=== PATIENT | male | born 1965 | race Caucasian/White ===

== ENCOUNTER → 2016-09-29 | Outpatient (CLI) | payer MEDICAID, OTHER ==
[2016-09-29 14:27] LABS: BASO % 0.6 % (0.0-1.0); EOS # 0.1 K/mm3 (0.0-0.50); EOS % 1.2 % (0.0-3.0); LARGE UNSTAINED CELL # 0.1 K/mm3 (0.0-0.4); LARGE UNSTAINED CELL % 1.5 % (0.0-4.0); LYMPH # 1.1 K/mm3 (1.5-4.5); LYMPH % 14.1 % (24.0-44.0); MEAN CORPUSCULAR HEMOGLOBIN 31.5 pg (27.0-33.0); MEAN CORPUSCULAR HGB CONC 34.9 g/dl (32.0-36.5); MEAN CORPUSCULAR VOLUME 90.2 fl (80.0-96.0); MONO # 0.4 K/mm3 (0.0-0.8); MONO % 4.9 % (0.0-5.0); NEUTROPHILS # 5.7 K/mm3 (1.8-7.7); NEUTROPHILS % 77.6 % (36.0-66.0); RED CELL DISTRIBUTION WIDTH 12.1 % (11.5-14.5); WHITE BLOOD COUNT 7.3 K/mm3 (4.0-10.0)
[2016-09-29 14:47] LABS: ALBUMIN 4.2 GM/DL (3.2-5.2); ALKALINE PHOSPHATASE 77 U/L (45-117); ALT/SGPT 18 U/L (12-78); ANION GAP 9 MEQ/L (8-16); AST/SGOT 10 U/L (15-37); BILIRUBIN,TOTAL 0.5 MG/DL (0.2-1.0); BLOOD UREA NITROGEN 18 MG/DL (7-18); CARBON DIOXIDE LEVEL 28 MEQ/L (21-32); CHLORIDE LEVEL 104 MEQ/L (98-107); CREATININE FOR GFR 1.01 MG/DL (0.70-1.30); GLOMERULAR FILTRATION RATE > 60.0 (>56); GLUCOSE, FASTING 87 MG/DL (70-105); SODIUM LEVEL 141 MEQ/L (136-145); TOTAL PROTEIN 7.2 GM/DL (6.4-8.2)
[2016-09-29 15:03] LABS: PLATELET COUNT, AUTOMATED 54 k/mm3 (150-450)
--- NOTE | 2016-09-29 15:10 | REP ---
CERVICAL SPINE, EIGHT VIEWS: HISTORY: Physical exam. COMPARISON: 01/24/2007 There is no acute fracture or subluxation. The C5-6 through C7-T1 intervertebral discs are decreased in height, consistent with disc degeneration. Osteophytes are present on C5 through C7. There is narrowing of the right C5 and C6 and left C3, C5, and C6 neural foramina, secondary to uncinate process hypertrophy. There is loss of the normal lordotic curve. IMPRESSION: Degenerative change, as described above. Signed by Laron Wong MD 09/29/2016 04:02 P
== END ==
LOC: M LAB 13:36
PROVIDERS: ATTEND Nurse Practitioner Family
DX: Z00.00 Encounter for general adult medical examination without abnormal findings (principal)

== ENCOUNTER → 2016-10-25 | Outpatient (REF) | payer OTHER ==
[2016-10-25 13:36] LABS: REASON FOR REVIEW COMPREHENSIVE REVIEW
[2016-10-27 00:07] LABS: SJOGREN'S ANTI SS-A <0.2 AI (0.0-0.9); SJOGREN'S ANTI SS-B <0.2 AI (0.0-0.9)
== END ==
LOC: M LAB REF 13:18
PROVIDERS: ATTEND Internal Medicine Medical Oncology
DX: D64.9 Anemia, unspecified (principal)

== ENCOUNTER → 2016-10-27 | Outpatient (CLI) | payer OTHER ==
--- NOTE | 2016-10-27 15:40 | REP ---
LIMITED ABDOMEN ULTRASOUND: HISTORY: Splenomegaly. The spleen is normal in size and echogenicity. The spleen measures 8.7 x 3.2 x 7.3 cm. The left kidney is normal in echogenicity. The left kidney measures 5.4 cm in transverse x 5.8 cm in AP x 10.8 cm in cephalocaudal dimensions. There is no hydronephrosis or mass. IMPRESSION: Normal abdominal ultrasound. Signed by Laron Wong MD 10/27/2016 03:45 P
== END ==
LOC: M RAD 07:39
PROVIDERS: ATTEND Internal Medicine Medical Oncology
DX: R16.1 Splenomegaly, not elsewhere classified (principal)

== ENCOUNTER 2016-12-25 13:33 | Outpatient (RCR) | payer OTHER | END 2016-12-26 | LOC: M PT 13:33 | PROVIDERS: ATTEND Neurological Surgery | DX: Z51.89 Encounter for other specified aftercare (principal); M54.2 Cervicalgia ==

== ENCOUNTER → 2017-01-25 | Outpatient (RCR) | payer OTHER | LOC: M PT 12-27 12:54 | PROVIDERS: ATTEND Neurological Surgery | DX: M48.02 Spinal stenosis, cervical region (principal) ==

== ENCOUNTER → 2017-01-30 | Outpatient (CLI) | payer OTHER ==
[~2017-01-30] MED LIST: GASTROGRAFIN SOLUTION 30ML (Q9963) As Ordered ONE; ISOVUE-370 76% 100ML VIAL (Q9967) As Ordered ONE
--- NOTE | 2017-01-31 09:29 | REP ---
CONTRAST ENHANCED CT OF THE PELVIS: CLINICAL: Postop left groin pain, evaluate for hematoma/seroma/mass. TECHNIQUE: Axial contrast enhanced images of the pelvis from approximately L4 through the pubic symphysis with coronal and sagittal reformations using oral (per protocol) and 100 mL Isovue 370 intravenous contrast material with coronal and sagittal reformations. COMPARISON: None. FINDINGS: The visualized enteric system demonstrates diverticula of the sigmoid colon without acute diverticulitis as well as a normal terminal ileum and appendix in the right lower quadrant. No bowel obstruction. No free air. No free fluid. No significant adenopathy. Vasculature is grossly unremarkable. Musculoskeletal structures are intact. No obvious significant adenopathy. Subtle postoperative changes in the left groin/inguinal region are appreciated without seroma or hematoma. IMPRESSION: Essentially normal contrast enhanced pelvic CT. Minimal postoperative changes in the left groin without hematoma/seroma. Signed by Julio Linn MD 02/02/2017 08:48 A
== END ==
LOC: M RAD 12:35
PROVIDERS: ATTEND Surgery
DX: K40.90 Unilateral inguinal hernia, without obstruction or gangrene, not specified as recurrent (principal)
CPT/HCPCS: 72193; Q9963; Q9967

== ENCOUNTER 2017-02-01 08:37 | Outpatient (RCR) | payer OTHER | END 2017-02-25 | LOC: M PT 08:37 | DX: Z51.89 Encounter for other specified aftercare (principal); M54.2 Cervicalgia | CPT/HCPCS: 97110 ==

== ENCOUNTER 2017-02-27 08:22 | Outpatient (RCR) | payer OTHER | END 2017-03-28 | LOC: M PT 08:22 | DX: Z51.89 Encounter for other specified aftercare (principal); M54.2 Cervicalgia ==

== ENCOUNTER 2017-04-28 18:48 | Emergency (ER) | payer OTHER ==
[2017-04-28] MEDS: ACETAMINOPHEN 325 MG TAB PO (19:45)
[2017-04-28] MEDS: IBUPROFEN 600 MG TAB PO (19:45)
[2017-04-28 20:25] LABS: INFLUENZA A AMPLIFICATION NEGATIVE (NEGATIVE); INFLUENZA B AMPLIFICATION POSITIVE (NEGATIVE)
== END 2017-04-28 20:53 | disposition home or self-care (01) ==
LOC: M ED 18:48
DX: J10.1 Influenza due to other identified influenza virus with other respiratory manifestations (principal); J02.9 Acute pharyngitis, unspecified; K21.9 Gastro-esophageal reflux disease without esophagitis; F17.200 Nicotine dependence, unspecified, uncomplicated; Z79.899 Other long term (current) drug therapy
CPT/HCPCS: 87502

== ENCOUNTER → 2017-05-08 | Outpatient (CLI) | payer OTHER ==
[2017-05-08 08:55] LABS: BASO # 0.1 10^3/uL (0.0-0.2); BASO % 0.9 % (0.0-1.0); EOS # 1.7 10^3/uL (0.0-0.50); HEMATOCRIT 46.4 % (42.0-52.0); HEMOGLOBIN 15.5 g/dl (14.0-18.0); IMMATURE GRANULOCYTE % 0.4 % (0-3.0); LYMPH # 1.5 10^3/uL (1.5-4.5); LYMPH % 16.2 % (24.0-44.0); MEAN CORPUSCULAR HEMOGLOBIN 29.8 pg (27.0-33.0); MEAN CORPUSCULAR HGB CONC 33.4 g/dl (32.0-36.5); MEAN CORPUSCULAR VOLUME 89.1 fl (80.0-96.0); MONO # 0.7 10^3/uL (0.0-0.8); MONO % 7.8 % (0.0-5.0); NEUTROPHILS % 55.7 % (36.0-66.0); PLATELET COUNT, AUTOMATED 219 10^3/uL (150-450); RED BLOOD COUNT 5.21 10^6/uL (4.30-6.10); RED CELL DISTRIBUTION WIDTH 12.5 % (11.5-14.5); WHITE BLOOD COUNT 8.9 10^3/uL (4.0-10.0)
[2017-05-08 09:14] LABS: ESTIMATED AVERAGE GLUCOSE 123 MG/DL (60-110); HEMOGLOBIN A1c 5.9 %
[2017-05-08 09:31] LABS: ALBUMIN 3.8 GM/DL (3.2-5.2); ALBUMIN/GLOBULIN RATIO 1.15 (1.00-1.93); ALKALINE PHOSPHATASE 93 U/L (45-117); ALT/SGPT 19 U/L (12-78); ANION GAP 4 MEQ/L (8-16); AST/SGOT 13 U/L (7-37); BILIRUBIN,TOTAL 0.3 MG/DL (0.2-1.0); BLOOD UREA NITROGEN 19 MG/DL (7-18); CALCIUM LEVEL 8.2 MG/DL (8.5-10.1); CARBON DIOXIDE LEVEL 30 MEQ/L (21-32); CHLORIDE LEVEL 110 MEQ/L (98-107); CHOLESTEROL LEVEL 214 MG/DL (<200); CHOLESTEROL RISK RATIO 5.944 (<5); CREATININE FOR GFR 0.86 MG/DL (0.70-1.30); FREE T4 0.94 NG/DL (0.76-1.46); GLOMERULAR FILTRATION RATE > 60.0 (>56); GLUCOSE, FASTING 96 MG/DL (70-100); HDL CHOLESTEROL 36 MG/DL (>40); NON-HDL-C 178 MG/DL; POTASSIUM SERUM 4.8 MEQ/L (3.5-5.1); SODIUM LEVEL 144 MEQ/L (136-145); TOTAL PROTEIN 7.1 GM/DL (6.4-8.2); TRIGLYCERIDES LEVEL 140 MG/DL (<150)
== END ==
LOC: M LAB 08:06
DX: D69.3 Immune thrombocytopenic purpura (principal); E55.9 Vitamin D deficiency, unspecified; Z79.899 Other long term (current) drug therapy
CPT/HCPCS: 84443

== ENCOUNTER 2017-10-23 09:03 | Day surgery (SDC) | payer OTHER ==
[2017-10-23] MEDS: LR 1,000 ML IV (09:36)
[2017-10-23] MEDS: ceFAZolin SOD 1 GM in D5W MINI-BAG PLUS 50 ML IV (11:40)
[2017-10-23] MEDS ORDERED: MIDAZOLAM INJ 2 MG/2 ML VIAL (J2250) As Ordered (11:51)
[2017-10-23] MEDS ORDERED: ONDANSETRON 4MG/2ML VIAL (J2405) As Ordered (11:51)
[2017-10-23] MEDS ORDERED: dexameTHASONE 4 MG/ML 1ML VIAL (J1100) As Ordered (11:51)
[2017-10-23] MEDS ORDERED: LIDOCAINE 2% INJ 100 MG/5 ML SDV (FOR ANES.) As Ordered (11:51)
[2017-10-23] MEDS ORDERED: PROPOFOL 200 MG/20 ML VIAL As Ordered (11:51)
[2017-10-23] MEDS ORDERED: fentaNYL 250 MCG/5 ML INJECTION (J3010) As Ordered (11:51)
[2017-10-23] MEDS ORDERED: KETOROLAC 60 MG/2 ML VIAL (J1885) As Ordered (11:51)
[2017-10-23] MEDS: BUPIVACAINE/EPIN 0.25% 30 ML VIAL As Ordered (12:45)
[2017-10-23] MEDS ORDERED: MORPHINE 4 MG/ML 1ML VIAL/SYRINGE (J2270) IV (13:15)
[2017-10-23] MEDS ORDERED: fentaNYL 100 MCG/2 ML INJECTION (J3010) IV (13:15)
[2017-10-23] MEDS ORDERED: ONDANSETRON 4MG/2ML VIAL (J2405) IV ×2 (13:15)
[2017-10-23] MEDS ORDERED: LR 1,000 ML IV ×2 (13:15)
[2017-10-23] MEDS ORDERED: PERCOCET 5MG/325MG TAB PO (13:15)
[2017-10-23] MEDS ORDERED: NORCO, ANEXSIA 5/325MG TABLET (HYDROcodone/ACETAMINOPHEN) PO (13:15)
[2017-10-23] MEDS ORDERED: MORPHINE 10 MG/ML 1ML VIAL (J2270) IV (13:15)
== END 2017-10-23 14:45 | disposition home or self-care (01) ==
LOC: M SDC 09:03
DX: K40.91 Unilateral inguinal hernia, without obstruction or gangrene, recurrent (principal); K21.9 Gastro-esophageal reflux disease without esophagitis; M19.022 Primary osteoarthritis, left elbow; R06.83 Snoring; G47.9 Sleep disorder, unspecified; Z72.0 Tobacco use; Z79.899 Other long term (current) drug therapy
CPT/HCPCS: 49651

== ENCOUNTER → 2018-01-21 | Outpatient (CLI) | payer OTHER | LOC: M OUTALCOH 08:22 | DX: F10.10 Alcohol abuse, uncomplicated (principal) ==

== ENCOUNTER 2018-02-03 11:21 | Emergency (ER) | payer OTHER ==
[2018-02-03] MEDS: LIDOCAINE 1% MDV 20ML VIAL IM (12:06)
[2018-02-03] MEDS: NORCO, ANEXSIA 5/325MG TABLET (HYDROcodone/ACETAMINOPHEN) PO (12:26)
== END 2018-02-03 12:54 | disposition home or self-care (01) ==
LOC: M ED 11:21
DX: L02.214 Cutaneous abscess of groin (principal); K21.9 Gastro-esophageal reflux disease without esophagitis; Z79.899 Other long term (current) drug therapy; F17.210 Nicotine dependence, cigarettes, uncomplicated
CPT/HCPCS: 87186

== ENCOUNTER → 2018-02-25 | Outpatient (RCR) | payer OTHER ==
[~2018-02-25] MED LIST changes: +BACT800T5 PO; -GASTROGRAFIN SOLUTION 30ML (Q9963) As Ordered ONE; +IBUP80TA PO; -ISOVUE-370 76% 100ML VIAL (Q9967) As Ordered ONE; +NORCOTAB PO; +OMEP20CA3 PO; +VITA100066 PO; +ZANTTAB PO
== END ==
LOC: M OUTALCOH 01-29 09:04 → EEVIPCON 02-05 09:00 → M OUTALCOH 02-07 14:00
PROVIDERS: ATTEND Psychiatry & Neurology Psychiatry
DX: F10.10 Alcohol abuse, uncomplicated (principal)

== ENCOUNTER 2018-03-27 15:52 | Outpatient (RCR) | payer OTHER, SELFPAY | END 2018-03-28 | LOC: M OUTALCOH 15:52 | PROVIDERS: ATTEND Psychiatry & Neurology Psychiatry | DX: F10.10 Alcohol abuse, uncomplicated (principal) ==

== ENCOUNTER 2018-04-17 16:00 | Outpatient (RCR) | payer OTHER | END 2018-04-25 | LOC: M OUTALCOH 16:00 | PROVIDERS: ATTEND Psychiatry & Neurology Psychiatry | DX: F10.10 Alcohol abuse, uncomplicated (principal) ==

== ENCOUNTER → 2021-01-11 | Outpatient (CLI) | payer OTHER ==
[~2021-01-11] MED LIST changes: +HYDR-3715 PO; -NORCOTAB PO; +OMEP1CAP73 PO; -OMEP20CA3 PO; +ZANT150T40 PO; -ZANTTAB PO
--- NOTE | 2021-01-11 11:40 | REP ---
INDICATION: OTHER INFECTIVE SYNOVITIS COMPARISON: None. TECHNIQUE: AP and lateral right elbow FINDINGS: Evidence for prior open reduction and fixation with orthopedic hardware stabilizing proximal ulna. No acute fracture or dislocation identified. Anterior and posterior fat pads are in normal position. No subcutaneous emphysema. IMPRESSION: Satisfactory open reduction and fixation for elbow/proximal ulnar fracture. No obvious acute process appreciated. <Electronically signed by Julio Linn > 01/11/21 [id number]
== END ==
LOC: M WUC 11:01
PROVIDERS: ATTEND Surgery
DX: M65.122 Other infective (teno)synovitis, left elbow (principal); S51.032S Puncture wound without foreign body of left elbow, sequela; W18.30XA Fall on same level, unspecified, initial encounter; Y92.009 Unspecified place in unspecified non-institutional (private) residence as the place of occurrence of the external cause

== ENCOUNTER 2021-06-09 11:39 | Emergency (ER) | payer OTHER ==
[~2021-06-09] VITALS: Ht 162.6 cm; Wt 67.4 kg
[2021-06-09] MEDS ORDERED: NS 1,000 ML IV ONE (13:25)
[2021-06-09] MEDS ORDERED: ACETAMINOPHEN 325 MG TAB PO ONE (13:30)
[2021-06-09 14:02] LABS: BASO % 0.5 % (0.0-1.0); HEMATOCRIT 44.8 % (42.0-52.0); LYMPH # 1.4 10^3/uL (1.5-5.0); LYMPH % 16.6 % (24.0-44.0); MEAN CORPUSCULAR HEMOGLOBIN 30.1 pg (27.0-33.0); MEAN CORPUSCULAR HGB CONC 33.5 g/dl (32.0-36.5); MEAN CORPUSCULAR VOLUME 89.8 fl (80.0-96.0); MONO # 0.5 10^3/uL (0.0-0.8); MONO % 5.7 % (2.0-8.0); NEUTROPHILS # 6.5 10^3/uL (1.5-8.5); NEUTROPHILS % 76.8 % (36.0-66.0); RED BLOOD COUNT 4.99 10^6/uL (4.30-6.10); WHITE BLOOD COUNT 8.5 10^3/uL (4.0-10.0)
[2021-06-09] MEDS ORDERED: ISOVUE-370 76% 100ML VIAL As Ordered ONE (14:02)
[2021-06-09 14:46] LABS: ALBUMIN 4.2 GM/DL (3.2-5.2); ALT/SGPT 17 U/L (12-78); BILIRUBIN,DIRECT < 0.1 MG/DL (0.0-0.2); BILIRUBIN,TOTAL 0.4 MG/DL (0.2-1.0); C REACTIVE PROTEIN QUANTITATIV < 0.30 MG/DL (0.00-0.30); LIPASE 82 U/L (73-393); TOTAL PROTEIN 7.4 GM/DL (6.4-8.2)
[2021-06-09 14:55] LABS: ERYTHROCYTE SEDIMENTATION RATE 4 mm/hr (0-20)
[2021-06-09 14:58] LABS: PLATELET COUNT, AUTOMATED 50 10^3/uL (150-450)
[2021-06-09 15:49] LABS: RSV AMPLIFICATION NEGATIVE (NEGATIVE)
[2021-06-09 16:17] VITALS: BP 142/88
== END 2021-06-09 16:26 | disposition home or self-care (01) ==
LOC: M ED 11:39
DX: D69.6 Thrombocytopenia, unspecified (principal); T81.30XA Disruption of wound, unspecified, initial encounter; K21.9 Gastro-esophageal reflux disease without esophagitis; Z87.891 Personal history of nicotine dependence; Z96.7 Presence of other bone and tendon implants
CPT/HCPCS: 73080; 73090; 73201; 80047; 80076; 83605; 83690; 85025; 85049; 85055; 85652; 86140; 87040; 87070; 87077; 87186; 87205; 87631; 96360; 99284; Q9967

== ENCOUNTER 2021-06-13 13:01 | Day surgery (SDC) | payer OTHER ==
[~2021-06-13] VITALS: Ht 162.6 cm; Wt 66.7 kg
[~2021-06-13 13:01] MED LIST changes: +ceFAZolin SOD 2 GM in IV 1 EA IV ONE; +oxyCODONE 5MG TAB PO ONE
[2021-06-13 13:45] LABS: HEMATOCRIT 46.6 % (42.0-52.0); HEMOGLOBIN 15.5 g/dl (13.5-17.5); MEAN CORPUSCULAR HGB CONC 33.3 g/dl (32.0-36.5); MEAN CORPUSCULAR VOLUME 90.1 fl (80.0-96.0); RED BLOOD COUNT 5.17 10^6/uL (4.30-6.10); WHITE BLOOD COUNT 8.2 10^3/uL (4.0-10.0)
[2021-06-13 13:46] LABS: PLATELET COUNT, AUTOMATED 53 10^3/uL (150-450)
[2021-06-13 13:54] LABS: INR 0.92; PROTHROMBIN TIME 12.8 SECONDS (12.7-14.5)
[2021-06-13 14:16] LABS: ALBUMIN 4.3 GM/DL (3.2-5.2); ALT/SGPT 19 U/L (12-78); BILIRUBIN,TOTAL 0.5 MG/DL (0.2-1.0); BLOOD UREA NITROGEN 16 MG/DL (7-18); CALCIUM LEVEL 9.3 MG/DL (8.5-10.1); CARBON DIOXIDE LEVEL 33 MEQ/L (21-32); CHLORIDE LEVEL 107 MEQ/L (98-107); CREATININE FOR GFR 0.78 MG/DL (0.70-1.30); GLOMERULAR FILTRATION RATE > 60.0 (>56); GLUCOSE, FASTING 87 MG/DL (70-100); POTASSIUM SERUM 4.1 MEQ/L (3.5-5.1); SODIUM LEVEL 143 MEQ/L (136-145); TOTAL PROTEIN 7.4 GM/DL (6.4-8.2)
[2021-06-13] MEDS ORDERED: propofoL 200 MG/20 ML VIAL As Ordered ONE (14:56)
[2021-06-13] MEDS ORDERED: LIDOCAINE 2% 100MG/5ML SDV (FOR ANES.) As Ordered ONE (14:56)
[2021-06-13] MEDS ORDERED: ONDANSETRON 4MG/2ML VIAL As Ordered ONE (14:57)
[2021-06-13] MEDS ORDERED: KETOROLAC 60MG 2ML VIAL As Ordered ONE (14:58)
[2021-06-13] MEDS ORDERED: dexameTHASONE 4 MG/ML 1ML VIAL (J1100 PER 1MG) As Ordered ONE (14:58)
[2021-06-13] MEDS ORDERED: LIDOCAINE 1% SDV 30ML VIAL As Ordered ONE (15:58)
[2021-06-13] MEDS ORDERED: ROCURONIUM BROMIDE 50 MG/5 ML VIAL As Ordered ONE (16:09)
[2021-06-13] MEDS ORDERED: fentaNYL 100 MCG/2 ML INJECTION As Ordered ONE (16:10)
[2021-06-13] MEDS ORDERED: MIDAZOLAM INJ 2MG/2ML VIAL (J2250 PER 1MG) As Ordered ONE (16:10)
[2021-06-13] MEDS ORDERED: BUPIVACAINE LIPOSOME/PF 1.3% 20ML VIAL (13.3MG/ML)(EXPAREL) As Ordered ONE (16:55)
[2021-06-13] MEDS ORDERED: ACETAMINOPHEN 1000MG 100ML IV BTL (OFIRMEV) (J0131 PER 10MG) As Ordered ONE (17:00)
[2021-06-13] MEDS ORDERED: BUPIVACAINE HCL 0.25% 10ML VIAL As Ordered ONE (17:19)
[2021-06-13] MEDS ORDERED: KETOROLAC 30 MG/ML 1ML VIAL IV PRN (17:40)
[2021-06-13] MEDS ORDERED: AUGM500T34 PO (17:49)
[2021-06-13] MEDS ORDERED: TRAM37.53 PO (17:50)
[2021-06-13] MEDS ORDERED: fentaNYL 100 MCG/2 ML INJECTION IV PRN (18:05)
[2021-06-13] MEDS ORDERED: LR 1,000 ML IV SCH ×2 (18:05→18:40)
[2021-06-13] MEDS ORDERED: ONDANSETRON 4MG/2ML VIAL IV PRN (18:05)
[2021-06-13] MEDS ORDERED: PERCOCET 5MG/325MG TAB PO PRN (18:05)
[2021-06-13 18:51] VITALS: BP 168/81
== END 2021-06-13 19:09 | disposition home or self-care (01) ==
LOC: M SDC 13:01
PROVIDERS: ATTEND Orthopaedic Surgery
DX: T81.31XA Disruption of external operation (surgical) wound, not elsewhere classified, initial encounter (principal); Z47.2 Encounter for removal of internal fixation device; F17.218 Nicotine dependence, cigarettes, with other nicotine-induced disorders; Y79.3 Surgical instruments, materials and orthopedic devices (including sutures) associated with adverse incidents; Y83.8 Other surgical procedures as the cause of abnormal reaction of the patient, or of later complication, without mention of misadventure at the time of the procedure
CPT/HCPCS: 20680; 36415; 71045; 73070; 80053; 85027; 85049; 85055; 85610; 93005; C9290; J0131; J0690; J1100; J1885; J2250; J2405; J3010

== ENCOUNTER 2023-06-27 10:33 | Emergency (ER) | payer MEDICAID, OTHER ==
[~2023-06-27] VITALS: Ht 162.6 cm; Wt 67.3 kg
[~2023-06-27 10:33] MED LIST changes: +AUGM500T34 PO; +TRAM37.53 PO; -ceFAZolin SOD 2 GM in IV 1 EA IV ONE; -oxyCODONE 5MG TAB PO ONE
[2023-06-27 12:03] LABS: BASO # 0.1 10^3/uL (0.0-0.2); BASO % 0.8 % (0.0-1.0); EOS % 0.5 % (0.0-3.0); HEMATOCRIT 46.2 % (42.0-52.0); HEMOGLOBIN 15.7 g/dl (13.5-17.5); LYMPH # 1.2 10^3/uL (1.5-5.0); LYMPH % 18.1 % (24.0-44.0); MEAN CORPUSCULAR HEMOGLOBIN 30.8 pg (27.0-33.0); MEAN CORPUSCULAR VOLUME 90.8 fl (80.0-96.0); MONO # 0.5 10^3/uL (0.0-0.8); MONO % 7.2 % (2.0-8.0); NEUTROPHILS # 4.8 10^3/uL (1.5-8.5); NEUTROPHILS % 72.9 % (36.0-66.0); PLATELET COUNT, AUTOMATED 103 10^3/uL (150-450); RED BLOOD COUNT 5.09 10^6/uL (4.30-6.10); WHITE BLOOD COUNT 6.6 10^3/uL (4.0-10.0)
[2023-06-27 12:11] LABS: LIPASE 38 U/L (12-53)
[2023-06-27 12:13] LABS: ALBUMIN 3.9 G/DL (3.2-5.2); ALKALINE PHOSPHATASE 81 U/L (46-116); ALT/SGPT 13 U/L (7.0-40); AST/SGOT 12 U/L (<34); BILIRUBIN,DIRECT 0.1 MG/DL (<0.4); BILIRUBIN,TOTAL 0.4 MG/DL (0.3-1.2); BLOOD UREA NITROGEN 25 MG/DL (9-23); CALCIUM LEVEL 8.6 MG/DL (8.5-10.1); CARBON DIOXIDE LEVEL 29 MMOL/L (20-31); CHLORIDE LEVEL 107 MMOL/L (98-107); GLOMERULAR FILTRATION RATE > 60.0 (>56); GLUCOSE, FASTING 102 MG/DL (60-100); POTASSIUM SERUM 4.3 MMOL/L (3.5-5.1); SODIUM LEVEL 140 MMOL/L (136-145); TOTAL PROTEIN 6.7 G/DL (5.7-8.2)
[2023-06-27] MEDS: KETOROLAC 30 MG/ML 1ML VIAL IV ONE (13:54)
[2023-06-27] MEDS ORDERED: ISOVUE-370 76% 100ML VIAL As Ordered ONE (13:54)
[2023-06-27 14:03] LABS: C REACTIVE PROTEIN QUANTITATIV < 0.40 MG/DL (<1.0)
[2023-06-27] MEDS ORDERED: PRIL20TA2 PO (14:24)
[2023-06-27] MEDS ORDERED: HOME MED LIST COMPLETE! XX SCH (14:25)
[2023-06-27 14:29] VITALS: TEMP 97
[2023-06-27 15:05] VITALS: BP 174/72; O2SAT 97
== END 2023-06-27 15:10 | disposition home or self-care (01) ==
LOC: M ED 10:33
DX: R10.9 Unspecified abdominal pain (principal); K21.9 Gastro-esophageal reflux disease without esophagitis; F17.200 Nicotine dependence, unspecified, uncomplicated; Z79.899 Other long term (current) drug therapy
CPT/HCPCS: 74177; 80048; 80076; 81001; 83690; 85025; 86140; 96374; 99284; J1885; Q9967

== ENCOUNTER → 2023-07-03 | Outpatient (CLI) | payer MEDICAID ==
[~2023-07-03] MED LIST changes: +PRIL20TA2 PO
== END ==
LOC: M OUTALCOH 13:26
PROVIDERS: ATTEND Psychiatry & Neurology Psychiatry
DX: F10.20 Alcohol dependence, uncomplicated (principal); F17.200 Nicotine dependence, unspecified, uncomplicated

== ENCOUNTER → 2023-07-25 | Outpatient (CLI) | payer MEDICAID ==
[2023-07-25 15:20] LABS: FREE T4 1.09 NG/DL (0.89-1.76)
[2023-07-25 15:21] LABS: HEPATITIS B SURFACE ANTIBODY POSITIVE (POSITIVE); THYROID STIMULATING HORMONE 1.084 uIU/ML (0.55-4.78)
[2023-07-25 15:22] LABS: CHOLESTEROL LEVEL 269 MG/DL (<200); CHOLESTEROL RISK RATIO 3.79 (<5); HDL CHOLESTEROL 70.8 MG/DL (>40); LDL CHOLESTEROL 179.8 MG/DL (<100); NON-HDL-C 198.2 MG/DL; TOTAL 25(OH) VITAMIN D 23.8 NG/ML (20.0-100.0); TRIGLYCERIDES LEVEL 92 MG/DL (<150)
[2023-07-25 15:27] LABS: HEMOGLOBIN A1c 4.9 % (4.0-6.0)
[2023-07-25 15:33] LABS: HEPATITIS B SURFACE ANTIGEN NEGATIVE (NEGATIVE)
[2023-07-25 15:45] LABS: HIV 1&2 SCREEN NEGATIVE (NEGATIVE)
[2023-07-25 15:53] LABS: HEPATITIS C VIRUS ABY INDEX < 0.02 INDEX (<0.8)
== END ==
LOC: M PLAIMG 10:37
PROVIDERS: ATTEND Student in an Organized Health Care Education/Training Program
DX: R10.32 Left lower quadrant pain (principal); Z13.220 Encounter for screening for lipoid disorders; Z13.29 Encounter for screening for other suspected endocrine disorder; Z13.21 Encounter for screening for nutritional disorder; Z11.59 Encounter for screening for other viral diseases; Z11.4 Encounter for screening for human immunodeficiency virus [HIV]; Z13.1 Encounter for screening for diabetes mellitus

== ENCOUNTER → 2023-07-27 | Outpatient (RCR) | payer MEDICAID | LOC: M OUTALCOH 07-10 15:49 | PROVIDERS: ATTEND Psychiatry & Neurology Psychiatry | DX: F10.20 Alcohol dependence, uncomplicated (principal); F17.200 Nicotine dependence, unspecified, uncomplicated ==

== ENCOUNTER 2023-08-24 15:00 | Outpatient (RCR) | payer MEDICAID | END 2023-08-26 | LOC: M OUTALCOH 15:00 | PROVIDERS: ATTEND Psychiatry & Neurology Psychiatry | DX: F10.20 Alcohol dependence, uncomplicated (principal); F17.200 Nicotine dependence, unspecified, uncomplicated ==

== ENCOUNTER 2023-09-08 14:40 | Emergency (ER) | payer MEDICAID ==
[~2023-09-08] VITALS: Ht 162.6 cm; Wt 65.4 kg
[~2023-09-08 14:40] MED LIST changes: +TRAM-443 PO; -TRAM37.53 PO
[2023-09-08 14:41] VITALS: BP 139/75; TEMP 97.9; O2SAT 97
[2023-09-08 16:29] LABS: BASO # 0.1 10^3/uL (0.0-0.2); BASO % 0.6 % (0.0-1.0); EOS % 0.5 % (0.0-3.0); HEMATOCRIT 49.1 % (42.0-52.0); HEMOGLOBIN 16.4 g/dl (13.5-17.5); LYMPH # 1.4 10^3/uL (1.5-5.0); LYMPH % 15.3 % (24.0-44.0); MEAN CORPUSCULAR HEMOGLOBIN 31.7 pg (27.0-33.0); MEAN CORPUSCULAR HGB CONC 33.4 g/dl (32.0-36.5); MEAN CORPUSCULAR VOLUME 94.8 fl (80.0-96.0); MONO # 0.5 10^3/uL (0.0-0.8); NEUTROPHILS # 6.8 10^3/uL (1.5-8.5); NEUTROPHILS % 77.3 % (36.0-66.0); RED BLOOD COUNT 5.18 10^6/uL (4.30-6.10); WHITE BLOOD COUNT 8.8 10^3/uL (4.0-10.0)
[2023-09-08 16:30] LABS: PLATELET COUNT, AUTOMATED 89 10^3/uL (150-450)
[2023-09-08 16:59] LABS: BILIRUBIN,DIRECT 0.1 MG/DL (<0.4); BILIRUBIN,TOTAL 0.5 MG/DL (0.3-1.2); TOTAL PROTEIN 6.9 G/DL (5.7-8.2)
[2023-09-08] MEDS: ACETAMINOPHEN 500 MG TAB PO ONE (18:02)
== END 2023-09-08 19:06 | disposition home or self-care (01) ==
LOC: M ED 14:40
DX: R10.812 Left upper quadrant abdominal tenderness (principal); M16.12 Unilateral primary osteoarthritis, left hip; F17.200 Nicotine dependence, unspecified, uncomplicated; K21.9 Gastro-esophageal reflux disease without esophagitis; F10.10 Alcohol abuse, uncomplicated; Z86.718 Personal history of other venous thrombosis and embolism; Z79.899 Other long term (current) drug therapy

== ENCOUNTER 2023-09-24 13:00 | Outpatient (RCR) | payer MEDICAID | END 2023-09-26 | LOC: M OUTALCOH 13:00 | PROVIDERS: ATTEND Psychiatry & Neurology Psychiatry | DX: F10.20 Alcohol dependence, uncomplicated (principal); F17.200 Nicotine dependence, unspecified, uncomplicated ==

== ENCOUNTER 2023-10-24 12:00 | Outpatient (RCR) | payer MEDICAID ==
[~2023-10-24 12:00] MED LIST changes: -TRAM-443 PO; +TRAM1TAB42 PO
== END 2023-10-27 ==
LOC: M OUTALCOH 12:00
PROVIDERS: ATTEND Psychiatry & Neurology Psychiatry
DX: F10.20 Alcohol dependence, uncomplicated (principal); F17.200 Nicotine dependence, unspecified, uncomplicated

== ENCOUNTER → 2023-11-26 | Outpatient (RCR) | payer MEDICAID | LOC: M OUTALCOH 10-30 16:00 | PROVIDERS: ATTEND Psychiatry & Neurology Psychiatry | DX: F10.20 Alcohol dependence, uncomplicated (principal); F17.200 Nicotine dependence, unspecified, uncomplicated ==

== ENCOUNTER 2023-12-24 14:55 | Outpatient (RCR) | payer MEDICAID | END 2023-12-27 | LOC: M OUTALCOH 14:55 | PROVIDERS: ATTEND Psychiatry & Neurology Psychiatry | DX: F10.20 Alcohol dependence, uncomplicated (principal); F17.200 Nicotine dependence, unspecified, uncomplicated ==

== ENCOUNTER 2024-01-21 14:46 | Outpatient (RCR) | payer MEDICAID | END 2024-01-26 | LOC: M OUTALCOH 14:46 | PROVIDERS: ATTEND Psychiatry & Neurology Psychiatry | DX: F10.20 Alcohol dependence, uncomplicated (principal); F17.200 Nicotine dependence, unspecified, uncomplicated ==

== ENCOUNTER 2024-02-25 15:00 | Outpatient (RCR) | payer MEDICAID | END 2024-02-26 | LOC: M OUTALCOH 15:00 | PROVIDERS: ATTEND Psychiatry & Neurology Psychiatry | DX: F10.20 Alcohol dependence, uncomplicated (principal); F17.200 Nicotine dependence, unspecified, uncomplicated ==

== ENCOUNTER → 2024-03-05 | Outpatient (CLI) | payer MEDICAID, OTHER ==
[2024-03-05 14:30] LABS: BASO % 0.7 % (0.0-1.0); EOS % 0.3 % (0.0-3.0); HEMATOCRIT 51.3 % (42.0-52.0); HEMOGLOBIN 17.3 g/dl (13.5-17.5); LYMPH # 0.7 10^3/uL (1.5-5.0); LYMPH % 11.8 % (24.0-44.0); MEAN CORPUSCULAR HEMOGLOBIN 31.9 pg (27.0-33.0); MEAN CORPUSCULAR HGB CONC 33.7 g/dl (32.0-36.5); MEAN CORPUSCULAR VOLUME 94.6 fl (80.0-96.0); MONO # 0.4 10^3/uL (0.0-0.8); MONO % 7.5 % (2.0-8.0); NEUTROPHILS # 4.7 10^3/uL (1.5-8.5); NEUTROPHILS % 79.5 % (36.0-66.0); RED BLOOD COUNT 5.42 10^6/uL (4.30-6.10); WHITE BLOOD COUNT 5.9 10^3/uL (4.0-10.0)
[2024-03-05 14:39] LABS: PLATELET COUNT, AUTOMATED 87 10^3/uL (150-450)
[2024-03-05 14:47] LABS: PSA SCREENING 2.25 NG/ML (< 4.00)
[2024-03-05 14:51] LABS: ALBUMIN 4.1 G/DL (3.2-5.2); ALKALINE PHOSPHATASE 77 U/L (40-129); ALT/SGPT 36 U/L (7.0-40); AST/SGOT 26 U/L (<34); BILIRUBIN,TOTAL 0.6 MG/DL (0.3-1.2); BLOOD UREA NITROGEN 20 MG/DL (9-23); CALCIUM LEVEL 9.2 MG/DL (8.5-10.1); CARBON DIOXIDE LEVEL 31 MMOL/L (20-31); CHLORIDE LEVEL 108 MMOL/L (98-107); CHOLESTEROL LEVEL 243 MG/DL (<200); CHOLESTEROL RISK RATIO 2.91 (<5); CREATININE FOR GFR 0.93 MG/DL (0.70-1.30); FREE T4 1.16 NG/DL (0.89-1.76); GLOMERULAR FILTRATION RATE > 60.0 (>56); GLUCOSE, FASTING 104 MG/DL (60-100); HDL CHOLESTEROL 83.4 MG/DL (>40); LDL CHOLESTEROL 143.6 MG/DL (<100); NON-HDL-C 159.6 MG/DL; POTASSIUM SERUM 4.5 MMOL/L (3.5-5.1); SODIUM LEVEL 144 MMOL/L (136-145); TOTAL PROTEIN 7.3 G/DL (5.7-8.2); TRIGLYCERIDES LEVEL 80 MG/DL (<150)
[2024-03-05 14:52] LABS: THYROID STIMULATING HORMONE 1.258 uIU/ML (0.55-4.78); VITAMIN B12 LEVEL 416 PG/ML (211-911)
== END ==
LOC: M PLALAB 09:58
PROVIDERS: ATTEND Nurse Practitioner Family
DX: N52.9 Male erectile dysfunction, unspecified (principal); E78.2 Mixed hyperlipidemia; Z12.5 Encounter for screening for malignant neoplasm of prostate; F10.90 Alcohol use, unspecified, uncomplicated

== ENCOUNTER 2024-03-24 14:48 | Outpatient (RCR) | payer MEDICAID, OTHER | END 2024-03-28 | LOC: M OUTALCOH 14:48 | PROVIDERS: ATTEND Psychiatry & Neurology Psychiatry | DX: F10.20 Alcohol dependence, uncomplicated (principal); F17.200 Nicotine dependence, unspecified, uncomplicated ==

== ENCOUNTER → 2024-04-10 | Outpatient (CLI) | payer OTHER | LOC: M RAD 11:39 | PROVIDERS: ATTEND Nurse Practitioner Family | DX: N42.89 Other specified disorders of prostate (principal); R10.32 Left lower quadrant pain; K44.9 Diaphragmatic hernia without obstruction or gangrene ==

== ENCOUNTER 2024-04-21 13:43 | Outpatient (RCR) | payer OTHER, MEDICAID | END 2024-04-25 | LOC: M OUTALCOH 13:43 | PROVIDERS: ATTEND Psychiatry & Neurology Psychiatry | DX: F10.20 Alcohol dependence, uncomplicated (principal); F17.200 Nicotine dependence, unspecified, uncomplicated ==

== ENCOUNTER → 2024-04-30 | Outpatient (POV) | payer MEDICAID, OTHER ==
[~2024-04-30] VITALS: Ht 162.6 cm; Wt 65.9 kg
[~2024-04-30] MED LIST changes: +ATOR40TA75 PO; +TELM1TAB35 PO
[2024-04-30 15:00] VITALS: BP 140/80; O2SAT 97
== END ==
LOC: M IRPOV 14:47
PROVIDERS: ATTEND Radiology Diagnostic Radiology
DX: I77.1 Stricture of artery (principal); I70.0 Atherosclerosis of aorta; F10.90 Alcohol use, unspecified, uncomplicated; D69.6 Thrombocytopenia, unspecified; Z72.0 Tobacco use; Z79.899 Other long term (current) drug therapy

== ENCOUNTER 2024-05-19 13:54 | Outpatient (RCR) | payer OTHER, MEDICAID ==
[2024-05-27] MEDS ORDERED: NEXI20CA PO (11:04)
== END 2024-05-26 ==
LOC: M OUTALCOH 13:54
PROVIDERS: ATTEND Psychiatry & Neurology Psychiatry
DX: F10.20 Alcohol dependence, uncomplicated (principal); F17.200 Nicotine dependence, unspecified, uncomplicated

== ENCOUNTER → 2024-06-25 | Outpatient (RCR) | payer MEDICAID, OTHER ==
[~2024-06-25] MED LIST changes: +NEXI20CA PO
== END ==
LOC: M OUTALCOH 06-02 13:51
PROVIDERS: ATTEND Psychiatry & Neurology Psychiatry
DX: F10.20 Alcohol dependence, uncomplicated (principal); F17.200 Nicotine dependence, unspecified, uncomplicated

== ENCOUNTER → 2024-12-09 | Outpatient (CLI) | payer OTHER ==
[2024-12-09 12:06] LABS: BASO # 0.0 10^3/uL (0.0-0.2); BASO % 0.5 % (0.0-1.0); EOS # 0.0 10^3/uL (0.0-0.5); EOS % 0.4 % (0.0-3.0); LYMPH # 0.8 10^3/uL (1.5-5.0); LYMPH % 10.9 % (24.0-44.0); MONO # 0.6 10^3/uL (0.0-0.8); MONO % 8.1 % (2.0-8.0); NEUTROPHILS # 5.9 10^3/uL (1.5-8.5); NEUTROPHILS % 79.8 % (36.0-66.0)
[2024-12-09 12:08] LABS: PLATELET COUNT, AUTOMATED 95 10^3/uL (150-450)
[2024-12-09 12:32] LABS: PSA SCREENING 2.20 NG/ML (< 4.00)
[2024-12-09 12:33] LABS: ALT/SGPT 25 U/L (7.0-40); AST/SGOT 25 U/L (<34); CALCIUM LEVEL 8.9 MG/DL (8.5-10.1); CARBON DIOXIDE LEVEL 30 MMOL/L (20-31); CHLORIDE LEVEL 106 MMOL/L (98-107); CHOLESTEROL LEVEL 169 MG/DL (<200); CHOLESTEROL RISK RATIO 2.23 (<5); CREATININE FOR GFR 0.79 MG/DL (0.70-1.30); GLOMERULAR FILTRATION RATE > 90.0 (>56); LDL CHOLESTEROL 83.1 MG/DL (<100); MAGNESIUM LEVEL 1.8 MG/DL (1.8-2.4); NON-HDL-C 93.5 MG/DL; POTASSIUM SERUM 4.3 MMOL/L (3.5-5.1); SODIUM LEVEL 144 MMOL/L (136-145); TRIGLYCERIDES LEVEL 52 MG/DL (<150)
[2024-12-09 12:37] LABS: FREE T4 0.95 NG/DL (0.89-1.76)
== END ==
LOC: M LAB 10:33
PROVIDERS: ATTEND Nurse Practitioner Family
DX: E78.2 Mixed hyperlipidemia (principal); I10 Essential (primary) hypertension; Z12.5 Encounter for screening for malignant neoplasm of prostate

== ENCOUNTER → 2025-01-14 | Outpatient (REF) | payer MEDICAID, OTHER ==
[2025-01-14 13:59] LABS: APPEARANCE, URINE CLOUDY (CLEAR); BACTERIA, URINE AUTO NEGATIVE (NEGATIVE); BILIRUBIN, URINE AUTO NEGATIVE (NEGATIVE); BLOOD, URINE BLOOD NEGATIVE (NEGATIVE); GLUCOSE, URINE (UA) AUTO NEGATIVE (NEGATIVE); KETONE, URINE AUTO NEGATIVE (NEGATIVE); LEUKOCYTE ESTERASE, URINE AUTO NEGATIVE (NEGATIVE); MUCUS, URINE SMALL (NEGATIVE); NITRITE, URINE AUTO NEGATIVE (NEGATIVE); PROTEIN, URINE AUTO NEGATIVE (NEGATIVE); RBC, URINE AUTO 0 /HPF (0-3); SPECIFIC GRAVITY URINE AUTO 1.017 (1.002-1.035); SQUAMOUS EPITHELIAL CELL UR AU 0 /HPF (0-6); URIC ACID CRYSTALS MODERATE; UROBILINOGEN, URINE AUTO 0.2 mg/dL (0.0-2.0); WBC, URINE AUTO 0 /HPF (0-3)
== END ==
LOC: M SMT 13:11
PROVIDERS: ATTEND Nurse Practitioner Family
DX: R35.0 Frequency of micturition (principal)